=== PATIENT | female | born 1980 | race Caucasian/White ===

== ENCOUNTER 2020-02-05 11:49 | Inpatient (IN) | payer OTHER ==
[2020-02-05 13:04] VITALS: BMI 23.3
[2020-02-05] MEDS ORDERED: ALBUTEROL SO4 HFA INHALER IH PRN (13:48)
[2020-02-05] MEDS ORDERED: chlordiazePOXIDE HCL 25 MG CAPSULE PO PRN (13:49)
[2020-02-05] MEDS ORDERED: NICOTINE POLACRILEX 2 MG GUM BUC PRN (13:49)
[2020-02-05] MEDS ORDERED: chlordiazePOXIDE HCL 25 MG CAPSULE PO ONE (13:49)
[2020-02-05] MEDS ORDERED: IBUPROFEN 400 MG TABLET (FP) PO PRN (13:49)
[2020-02-05] MEDS ORDERED: ONDANSETRON *ODT* 4 MG TABLET SL PRN (13:49)
[2020-02-05] MEDS ORDERED: ACETAMINOPHEN 325 MG TABLET (FP) PO PRN ×2 (13:49)
[2020-02-05] MEDS ORDERED: MENTHOL/PHENOL 1 EACH UD MM PRN (13:49)
[2020-02-05] MEDS ORDERED: MAGNESIUM CITRATE 300 ML BOTTLE PO PRN (13:49)
[2020-02-05] MEDS ORDERED: MAGNESIUM HYDROX 2400MG/30ML ORAL SUSPENSION 30 ML CUP PO PRN (13:49)
[2020-02-05] MEDS ORDERED: MAG HYDROX/AL HYDROX/SIMETH 30 ML UNIT-DOSE CUP PO PRN (13:49)
[2020-02-05] MEDS ORDERED: BISMUTH SUBSALICYLATE 262 MG/15 ML BTL PO PRN (13:49)
[2020-02-05] MEDS ORDERED: METHOCARBAMOL 500 MG TABLET PO PRN (13:49)
[2020-02-05] MEDS: NICOTINE 7 MG/24 HOURS TOPICAL PATCH TD SCH (15:06)
[2020-02-05] MEDS: hydrOXYzine PAMOATE 25 MG CAPSULE (FP) PO SCH ×3 (15:06→22:28)
[2020-02-05 17:09] LABS: HEMOGLOBIN 14.1 GM/dL (10.7-15.3); MCHC 33.5 g/dl (32.0-36.0); MEAN CELL VOLUME 107.5 fl (80-96); MEAN PLT VOLUME 8.4 fl (7.5-11.1); PLATELET COUNT 241 K/MM3 (134-434); POTASSIUM 3.7 mmol/L (3.5-5.1); RBC 3.91 M/mm3 (3.60-5.2); RDW 13.2 % (11.6-15.6); WHITE BLOOD COUNT 4.3 K/mm3 (4.0-10.0)
[2020-02-05 17:12] LABS: ALBUMIN 4.3 g/dl (3.4-5.0); CALCIUM 9.1 mg/dL (8.5-10.1)
[2020-02-05 17:13] LABS: BLOOD UREA NITROGEN 4.2 mg/dL (7-18)
[2020-02-05 17:16] LABS: CREATININE 0.9 mg/dL (0.55-1.3)
[2020-02-05 17:17] LABS: BILIRUBIN,TOTAL 0.6 mg/dL (0.2-1); TOT PROT 8.2 g/dl (6.4-8.2)
[2020-02-05] MEDS: chlordiazePOXIDE HCL 25 MG CAPSULE PO SCH ×2 (17:55→22:27)
[2020-02-05] MEDS: traZODone HCL 50 MG TABLET (FP) PO SCH (22:27)
[2020-02-05] MEDS: THIAMINE HCL 100 MG TABLET (FP) PO SCH (22:28)
[2020-02-05] MEDS: MELATONIN 5 MG TABLETS PO SCH (22:28)
[2020-02-06] MEDS: chlordiazePOXIDE HCL 25 MG CAPSULE PO SCH (05:54)
[2020-02-06] MEDS: hydrOXYzine PAMOATE 25 MG CAPSULE (FP) PO SCH ×5 (05:54→22:29)
[2020-02-06] MEDS ORDERED: LORazepam 1 MG TABLET PO PRN (10:00)
[2020-02-06] MEDS: PRENATAL VITAMINS W/ FOLIC ACID TABLET (FP) PO SCH (10:13)
[2020-02-06] MEDS: LORazepam 2 MG TABLET PO SCH ×3 (10:13→22:25)
[2020-02-06] MEDS: NICOTINE 7 MG/24 HOURS TOPICAL PATCH TD SCH (10:14)
[2020-02-06] MEDS: PATIENT'S OWN MEDICATION (NON-FORMULARY) (Beclomethasone Dipropionate [Qvar Redihaler] 10. IH SCH (10:14)
[2020-02-06] MEDS: MELATONIN 5 MG TABLETS PO SCH (22:25)
[2020-02-06] MEDS: traZODone HCL 50 MG TABLET (FP) PO SCH (22:25)
[2020-02-06] MEDS: THIAMINE HCL 100 MG TABLET (FP) PO SCH (22:25)
[2020-02-07] MEDS ORDERED: chlordiazePOXIDE HCL 25 MG CAPSULE PO SCH (05:00)
[2020-02-07] MEDS: hydrOXYzine PAMOATE 25 MG CAPSULE (FP) PO SCH ×5 (06:13→22:04)
[2020-02-07] MEDS: LORazepam 2 MG TABLET PO SCH ×4 (06:13→22:04)
[2020-02-07 10:35] LABS: POTASSIUM 3.9 mmol/L (3.5-5.1)
[2020-02-07 10:36] LABS: INR 0.97 (0.83-1.09); PROTHROMBIN TIME (PATIENT) 11.7 SEC (9.7-13.0)
[2020-02-07 10:38] LABS: ALBUMIN 3.4 g/dl (3.4-5.0); BLOOD UREA NITROGEN 5.9 mg/dL (7-18); CALCIUM 9.8 mg/dL (8.5-10.1)
[2020-02-07] MEDS: PRENATAL VITAMINS W/ FOLIC ACID TABLET (FP) PO SCH (10:38)
[2020-02-07] MEDS: NICOTINE 7 MG/24 HOURS TOPICAL PATCH TD SCH (10:39)
[2020-02-07] MEDS: PATIENT'S OWN MEDICATION (NON-FORMULARY) (Beclomethasone Dipropionate [Qvar Redihaler] 10. IH SCH (10:39)
[2020-02-07 10:41] LABS: CREATININE 0.7 mg/dL (0.55-1.3)
[2020-02-07 10:43] LABS: TOT PROT 6.6 g/dl (6.4-8.2)
[2020-02-07] MEDS ORDERED: PNEUMOC 13-VAL CONJ-DIP CRM/PF 0.5 ML DISP.SYRIN IM ONE (12:00)
[2020-02-07] MEDS ORDERED: PNEUMOCOCCAL 23 VACCINE 0.5 ML VIAL IM ONE (12:01)
[2020-02-07] MEDS: MELATONIN 5 MG TABLETS PO SCH (22:04)
[2020-02-07] MEDS: THIAMINE HCL 100 MG TABLET (FP) PO SCH (22:04)
[2020-02-07] MEDS: traZODone HCL 50 MG TABLET (FP) PO SCH (22:04)
[2020-02-08] MEDS ORDERED: chlordiazePOXIDE HCL 10 MG CAPSULE PO PRN
[2020-02-08] MEDS ORDERED: chlordiazePOXIDE HCL 10 MG CAPSULE PO SCH (05:00)
[2020-02-08] MEDS: LORazepam 1 MG TABLET PO SCH ×4 (06:21→22:18)
[2020-02-08] MEDS: hydrOXYzine PAMOATE 25 MG CAPSULE (FP) PO SCH ×5 (06:21→22:18)
[2020-02-08] MEDS: PATIENT'S OWN MEDICATION (NON-FORMULARY) (Beclomethasone Dipropionate [Qvar Redihaler] 10. IH SCH (10:13)
[2020-02-08] MEDS: PRENATAL VITAMINS W/ FOLIC ACID TABLET (FP) PO SCH (10:14)
[2020-02-08] MEDS: NICOTINE 7 MG/24 HOURS TOPICAL PATCH TD SCH (10:14)
[2020-02-08] MEDS: traZODone HCL 50 MG TABLET (FP) PO SCH (22:18)
[2020-02-08] MEDS: MELATONIN 5 MG TABLETS PO SCH (22:18)
[2020-02-08] MEDS: THIAMINE HCL 100 MG TABLET (FP) PO SCH (22:18)
[2020-02-09] MEDS ORDERED: LORazepam 0.5 MG TABLET PO PRN
[2020-02-09] MEDS ORDERED: chlordiazePOXIDE HCL 10 MG CAPSULE PO SCH (05:00)
[2020-02-09] MEDS: hydrOXYzine PAMOATE 25 MG CAPSULE (FP) PO SCH ×5 (06:17→22:31)
[2020-02-09] MEDS: LORazepam 0.5 MG TABLET PO SCH ×4 (06:17→22:30)
[2020-02-09] MEDS: PRENATAL VITAMINS W/ FOLIC ACID TABLET (FP) PO SCH (10:03)
[2020-02-09] MEDS: PATIENT'S OWN MEDICATION (NON-FORMULARY) (Beclomethasone Dipropionate [Qvar Redihaler] 10. IH SCH (10:04)
[2020-02-09] MEDS: NICOTINE 7 MG/24 HOURS TOPICAL PATCH TD SCH (10:04)
[2020-02-09] MEDS: THIAMINE HCL 100 MG TABLET (FP) PO SCH (22:30)
[2020-02-09] MEDS: traZODone HCL 50 MG TABLET (FP) PO SCH (22:30)
[2020-02-09] MEDS: MELATONIN 5 MG TABLETS PO SCH (22:31)
[2020-02-10] MEDS ORDERED: LORazepam 0.5 MG TABLET PO ONE (05:00)
[2020-02-10] MEDS ORDERED: chlordiazePOXIDE HCL 10 MG CAPSULE PO ONE (05:00)
[2020-02-10] MEDS: hydrOXYzine PAMOATE 25 MG CAPSULE (FP) PO SCH ×2 (05:55→09:08)
[2020-02-10] MEDS: PATIENT'S OWN MEDICATION (NON-FORMULARY) (Beclomethasone Dipropionate [Qvar Redihaler] 10. IH SCH (09:05)
[2020-02-10] MEDS: PRENATAL VITAMINS W/ FOLIC ACID TABLET (FP) PO SCH (09:05)
[2020-02-10] MEDS: NICOTINE 7 MG/24 HOURS TOPICAL PATCH TD SCH (09:06)
[2020-02-10 09:19] VITALS: BP 97/61; PULSE 72; TEMP 98.8
== END 2020-02-10 09:40 | disposition home or self-care (01) | DRG 775 ==
LOC: YASAS 11:49 → Y3N 13:12
PROVIDERS: ADMIT Allergy & Immunology; ATTEND Allergy & Immunology
PROC: HZ2ZZZZ Detoxification Services for Substance Abuse Treatment (ICD-10-PCS; principal; 2020-02-05)
DX: F10.230 Alcohol dependence with withdrawal, uncomplicated (principal); F13.230 Sedative, hypnotic or anxiolytic dependence with withdrawal, uncomplicated; F17.210 Nicotine dependence, cigarettes, uncomplicated; F43.10 Post-traumatic stress disorder, unspecified; F41.9 Anxiety disorder, unspecified; F41.0 Panic disorder [episodic paroxysmal anxiety]; R74.01 Elevation of levels of liver transaminase levels; G47.00 Insomnia, unspecified; J45.909 Unspecified asthma, uncomplicated; R00.0 Tachycardia, unspecified; Z91.410 Personal history of adult physical and sexual abuse
CPT/HCPCS: 36415; 80053; 82947; 85027; 85610; 86780; 90732; 93005; 93010; C9803; G0009; U0003